=== PATIENT | male | born 1990 | race Caucasian/White ===

== ENCOUNTER 2023-09-08 13:23 | Emergency (ER) | payer OTHER, SELFPAY ==
--- NOTE | ~2023-09-08 | CT_ITS ---
EXAMINATION: CT ABDOMEN AND PELVIS WITHOUT CONTRAST CLINICAL INFORMATION: Right abdominal pain, nausea and vomiting. COMPARISON: None available. TECHNIQUE: Multidetector volumetric imaging was performed from the superior aspect of the liver through the pubic symphysis. Sagittal and coronal reformatted images were obtained on the technologist's workstation. This CT examination was performed using dose optimization techniques as appropriate, variously including the following: *Automated exposure control *Adjustment of mA and/or kV according to patient size (this includes techniques or standardized protocols for targeted exams where dose is matched to indication/reason for exam; i.e. extremities or head) *Use of iterative reconstruction technique DLP: 571 mGy-cm FINDINGS: LUNG BASES: At the posterolateral left base, there is tree-in-bud nodularity, opacification groundglass change. Among the largest nodules is one in the posterior base measuring 8 mm (4:102). LIVER, GALLBLADDER, AND BILIARY TREE: The liver is normal in size, shape, and attenuation. No focal hepatic lesion or biliary ductal dilatation is present. The gallbladder is unremarkable with no evidence of radiopaque gallstones, gallbladder wall thickening, or obvious pericholecystic inflammatory changes. PANCREAS: Unremarkable. SPLEEN: Unremarkable. ADRENAL GLANDS: Unremarkable. KIDNEYS AND URETERS: The kidneys are normal in size, shape, and attenuation. At the upper pole of the right kidney (4:229), there is a 9 mm focus of mineralization of a medullary pyramid. There is moderate right hydronephroureter secondary to an 8 mm calculus at the right ureterovesicular junction. No left ureteric calculus or obstruction is noted. No perinephric stranding. BLADDER: Decompressed and otherwise unremarkable. GASTROINTESTINAL TRACT: There is a large stool burden, suggesting possible constipation. No obstruction, free intraperitoneal air or abscess is seen. There is no focal bowel wall thickening. The vermiform appendix appears normal. ABDOMINAL WALL: No significant hernia is appreciated. LYMPH NODES: Normal. VASCULAR: Unremarkable. PELVIC VISCERA: The prostate and seminal vesicles are unremarkable. OSSEOUS STRUCTURES: There is mild posterior spondylosis at L5-S1. No acute or aggressive osseous abnormality is seen. CT/CT abdomen pelvis wo IV con IMPRESSION: 1. There is moderate right hydronephroureter secondary to an 8 mm, calculus at the right ureterovesicular junction. 2. 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 3. Findings suggest possible constipation, without william bowel obstruction. 4. There is airspace disease and nodularity at the posterolateral right base likely infectious or inflammatory. One of the largest discrete nodules measures 8 mm. According to the UPDATED 2017 Fleischner Society recommendations, the advised follow-up imaging for multiple solid nodules, the largest measuring 6 mm or greater, is: LOW RISK PATIENT: CT at 3-6 months, then consider CT at 18-24 months. HIGH RISK PATIENT: CT at 3-6 months, then at 18-24 months. Consider dedicated elective CT examination of the chest. Fleischner guidelines were followed.
--- NOTE | 2023-09-08 13:38 | ED_ITS ---
HPI - General Adult General Chief complaint: Abdominal Pain Stated complaint: LRQ pain Time Seen by Provider: 09/08/23 20:37 Source: patient Mode of arrival: ambulatory Limitations: no limitations History of Present Illness HPI narrative: Patient with significant past medical history father had history of kidney stones noticed pain in the right flank radiating to right lower abdomen since yesterday 21:00 got worse prior to arrival with nausea and vomiting 2 times uncomfortable on arrival also had pain to urinate no fever no chills Related Data Previous Rx's Medication Instructions Recorded ibuprofen 600 mg tablet 600 mg PO Q6H PRN fever or pain 09/09/23 #30 tabs morphine 15 mg immediate release 15 mg PO Q8H PRN pain #15 tabs 09/09/23 tablet tamsulosin 0.4 mg capsule (Flomax) 0.4 mg PO BEDTIME #10 caps 09/09/23 Allergies Allergy/AdvReac Type Severity Reaction Status Date / Time No Known Allergies Allergy Verified 09/08/23 13:41 Review of Systems 2 Review of Systems: Yes all other systems are reviewed and are negative FORMERLY [facility], [facility]–1983 Social History Social History Alcohol intake: never Smoked in Last 30 Days: No Use of substances other than those prescribed or required for medical reasons: No Advance Directives: No Advance Directives Information Provided: Yes Physical Exam ED Vital Signs: Vital Signs - 24 hr 09/08/23 13:39 09/08/23 21:01 09/08/23 21:21 Temperature 98.9 F 98.2 F Pulse Rate 89 76 Respiratory Rate 20 16 16 Blood Pressure 147/83 H 142/83 H Pulse Oximetry 100 98 Oxygen Delivery Method Room Air Room Air 09/08/23 23:00 09/09/23 00:09 Temperature Pulse Rate 69 73 Respiratory Rate 16 16 Blood Pressure 129/81 133/74 Pulse Oximetry 98 98 Oxygen Delivery Method Room Air Room Air BMI result Body Mass Index 24.2 Appearance: Alert. Oriented X3. In moderate distress Eyes: No pallor or icterus ENT: Pharynx normal. Oral Mucosa moist Neck: Normal inspection. Neck supple. CVS: Normal heart rate and rhythm. Pulses normal. Respiratory: No respiratory distress. Equal air entry bilateral, no wheezing/rales/rhonchi Abdomen: Soft D tenderness right lower quadrant no rebound tenderness or guarding. Bowel sounds are present, no mass palpable, right CVA tenderness + Skin: Skin warm and dry. Normal skin color. Normal skin turgor. Extremities: No lower extremity edema. No calf tenderness Neuro: Oriented X 3. Course Course Course Narrative: RME performed by Radha Del Rio PA-C. Patient is a 33 year old assigned male at presenting to the emergency department with RLQ abdominal pain and pain with urination. Labs ordered. Patient placed back in the waiting room pending room availability and results. Reevaluation(s) Reevaluation #1: pain improved plan was to follow up as outpatient with urology wants to go home and is ready Medications Administered Discontinued Medications Generic Name Dose Route Start Last Admin Trade Name Freq PRN Reason Stop Dose Admin Dexamethasone Sodium Phosphate 10 mg 09/08/23 20:41 09/08/23 21:21 Dexamethasone Sod Phosphate 10 Mg/Ml Vial IVPUSH 09/08/23 20:42 10 mg ONCE ONE Administration Hydromorphone HCl 2 mg 09/08/23 22:58 09/08/23 23:09 Hydromorphone Hcl 2 Mg/Ml Vial IVPUSH 09/08/23 22:59 2 mg ONCE ONE Administration Protocol Sodium Chloride 1,000 mls @ 999 mls/hr 09/08/23 20:38 09/08/23 22:27 Ns IV 09/08/23 21:38 Infused .Q1H1M ONE Infusion Sodium Chloride 1,000 mls @ 999 mls/hr 09/08/23 22:58 09/09/23 00:01 Ns IV 09/08/23 23:58 Infused .Q1H1M ONE Infusion Ketorolac Tromethamine 30 mg 09/08/23 20:38 09/08/23 21:22 Ketorolac Tromethamine 30 Mg/Ml Vial IVPUSH 09/08/23 20:39 30 mg ONCE ONE Administration Morphine Sulfate 4 mg 09/08/23 20:38 09/08/23 21:21 Morphine Sulfate 4 Mg/Ml Cartridge IVPUSH 09/08/23 20:39 4 mg ONCE ONE Administration Protocol Ondansetron HCl 4 mg 09/08/23 20:39 09/08/23 21:21 Ondansetron Hcl 4 Mg/2 Ml Vial IVPUSH 09/08/23 20:40 4 mg ONCE ONE Administration Tamsulosin HCl 0.4 mg 09/08/23 20:41 09/08/23 21:26 Tamsulosin Hcl 0.4 Mg Capsule PO 09/08/23 20:42 0.4 mg ONCE ONE Administration Medical Decision Making Medical Decision Making [facility] Narrative: Patient with 8 mm left UVJ stone with moderate hydronephrosis feeling much better after IV hydration pain medication case discussed with urologist advised discharge the patient if pain controlled to be seen as outpatient 0045: Patient feeling much better at this time will observe for some time he gets completely better Differential Diagnosis Differential Diagnoses: The differential diagnosis associated with the presentation includes Renal colic/UTI Admission/Observation Consideration of admission/observation: Escalation of care including admission/observation considered Lab Data [facility] Lab Attestation statement: I reviewed the patient's lab results. 09/08/23 14:39 09/08/23 14:39 Labs: Lab Results 09/08/23 Range/Units 14:39 WBC 11.8 H (4.8-10.8) X10*3/uL RBC 4.55 L (4.60-5.80) X10*6/uL Hgb 14.2 (14.0-18.0) g/dl Hct 42.1 (42.0-52.0) % MCV 92.5 (80.0-98.0) fL MCH 31.2 (27.0-33.0) pg MCHC 33.7 (31.0-36.0) g/dl RDW 12.2 (11.0-16.0) % Plt Count 217 (160-400) X10*3/uL MPV 8.9 L (9.4-12.4) fL Immature Gran % (Auto) 0.3 (0.0-0.4) % Neut % (Auto) 83.9 H (45-73) % Lymph % (Auto) 7.7 L (20-40) % [place] % (Auto) 7.4 (2-11) % Eos % (Auto) 0.3 (0-4) % Baso % (Auto) 0.4 (0-2) % Lymph # (Auto) 0.9 L (1.2-4.9) X10*3/uL [place] # (Auto) 0.9 (0.1-1.2) X10*3/uL Eos # (Auto) 0.0 (0.0-0.4) X10*3/uL Baso # (Auto) 0.1 (0.0-0.2) X10*3/uL Abs Immat Gran (auto) 0.03 (0.00-0.03) X10*3/uL Absolute Neuts (auto) 9.9 H (2.0-8.3) x10*3/uL Absolute Nucleated RBC 0.000 (0.0-0.012) X10*3/uL Nucleated RBC % (auto) 0.0 (0.0-0.2) /100WBC Sodium 137 (135-145) mmol/L Potassium 4.1 (3.3-5.1) mmol/L Chloride 102 (96-108) mmol/L Carbon Dioxide 27 (22-29) mmol/L Anion Gap 12 (12-20) BUN 19 H (9-16) mg/dL Creatinine 1.09 (0.5-1.4) mg/dL Estim Creat Clear Calc 109.9 Estimated GFR > 60 Random Glucose 103 (60-115) mg/dL Calcium 9.3 (8.4-10.2) mg/dL Magnesium 1.7 (1.6-2.6) mg/dL Total Bilirubin 0.5 (0.0-1.0) mg/dL AST 18 (5-37) U/L ALT 16 (0-40) U/L Alkaline Phosphatase 82 (39-117) U/L Total Protein 7.7 (6.5-8.0) g/dL Albumin 5.0 (3.5-5.0) g/dL Urine Color Yellow Urine Appearance Clear Urine pH 6.5 (5.0-9.0) Ur Specific [place] 1.020 (1.005-1.025) Urine Protein Trace (Neg-Trace) mg/dL Urine Glucose (UA) Negative (Negative) mg/dL Urine Ketones Negative (Negative) mg/dL Urine Blood Moderate (2+) H (Negative) Urine Nitrite Negative (Negative) Ur Leukocyte Esterase Small (1+) H (Negative) Urine RBC >20 H (0-2) /HPF Urine WBC 11-20 H (0-5) /HPF Ur Squamous Epith Cells 0-2 (0-2) /HPF Calcium Oxalate Crystal Present Urine Bacteria None Seen (None Seen) Hyaline Casts 0-2 (0-2) /LPF Influenza Type A (PCR) NEGATIVE (Negative) Influenza Type B (PCR) NEGATIVE (Negative) RSV RNA Qual (PCR) NEGATIVE (Negative) SARS-CoV-2 RNA (RT-PCR) NEGATIVE (Negative) Independent Interpretation I performed an independent interpretation of an: CT Scan Radiology Impression Discussion of test interpretation with radiology: I have reviewed the radiologist's reading. Discharge Plan Discharge Clinical Impression: Kidney stone on left side Patient Disposition: Home, Self-Care Instructions: Kidney Stones (ED), Low Oxalate Diet (ED) Additional Instructions: Drink plenty of water Avoid food containing high oxalate Pain medication as prescribed Follow-up with urologist tomorrow Prescriptions: New morphine 15 mg tablet 15 mg PO Q8H PRN (Reason: pain) Qty: 15 0RF Rx Instructions: Partial Fill upon patient request. tamsulosin [Flomax] 0.4 mg capsule 0.4 mg PO BEDTIME Qty: 10 0RF ibuprofen 600 mg tablet 600 mg PO Q6H PRN (Reason: fever or pain) Qty: 30 0RF Referrals: Pedro Carson MD [Physician] - 1 day
[2023-09-08 13:39] VITALS: BP 147/83; PULSE 89; RESP 20; TEMP 37.2; O2SAT 100; BMI 24.2
[2023-09-08 14:45] LABS: MANUAL DIFF FLAG NO
[2023-09-08 14:46] LABS: Basophils Absolute Auto 0.1 X10*3/uL (0.0-0.2); Basophils Percent Auto 0.4 % (0-2); Eosinophils Percent Auto 0.3 % (0-4); Hematocrit 42.1 % (42.0-52.0); Hemoglobin 14.2 g/dl (14.0-18.0); Imm Gran Abs Auto 0.03 X10*3/uL (0.00-0.03); Imm Gran Pct Auto 0.3 % (0.0-0.4); Lymphocytes Absolute Auto 0.9 X10*3/uL (1.2-4.9); Lymphocytes Percent Auto 7.7 % (20-40); Mean Corpuscular HGB Conc 33.7 g/dl (31.0-36.0); Mean Corpuscular Hemoglobin 31.2 pg (27.0-33.0); Mean Corpuscular Volume 92.5 fL (80.0-98.0); Mean Platelet Volume 8.9 fL (9.4-12.4); Monocytes Absolute Auto 0.9 X10*3/uL (0.1-1.2); Monocytes Percent Auto 7.4 % (2-11); Neutrophils Absolute Auto 9.9 x10*3/uL (2.0-8.3); Neutrophils Percent Auto 83.9 % (45-73); Platelet Count 217 X10*3/uL (160-400); Red Blood Count 4.55 X10*6/uL (4.60-5.80); Red Cell Distribution Width 12.2 % (11.0-16.0); White Blood Count 11.8 X10*3/uL (4.8-10.8)
[2023-09-08 14:53] LABS: Appearance Urine Clear; Color Urine Yellow; Glucose Urine UA Negative (Negative); Leukocyte Esterase Urine Small (1+) (Negative); Nitrite Urine Negative (Negative); PH 6.5 (5.0-9.0); UMIC TRIGGER UACC YES; Urine Blood Moderate (2+) (Negative); Urine Ketones Negative (Negative); Urine Protein Trace mg/dL (Neg-Trace)
[2023-09-08 14:59] LABS: Alanine Aminotransferase 16 U/L (0-40); Alkaline Phosphatase 82 U/L (39-117); Anion Gap 12 (12-20); Aspartate Amino Transferase 18 U/L (5-37); Bilirubin Total 0.5 mg/dL (0.0-1.0); Blood Urea Nitrogen 19 mg/dL (9-16); Calcium 9.3 mg/dL (8.4-10.2); Carbon Dioxide 27 mmol/L (22-29); Chloride 102 mmol/L (96-108); Creatinine Clr Calc Pharmacy 109.9; Estimated Glomerular Filt Rate > 60; Glucose Random 103 mg/dL (60-115); Magnesium 1.7 mg/dL (1.6-2.6); Potassium 4.1 mmol/L (3.3-5.1); Sodium 137 mmol/L (135-145); Total Protein 7.7 g/dL (6.5-8.0)
[2023-09-08 15:24] LABS: Bacteria Urine None Seen (None Seen); Calcium Oxalate Crystals Urine Present; Hyaline Casts Urine 0-2 /LPF (0-2); Influenza A PCR NEGATIVE (Negative); Influenza B PCR NEGATIVE (Negative); RBC Urine >20 /HPF (0-2); Resp Syncy Virus RNA Qual PCR NEGATIVE (Negative); SARS COV2 PCR INHOUSE NEGATIVE (Negative); Squamous Epithelial Cell Urine 0-2 /HPF (0-2); UACC Culture Trigger YES
[2023-09-08 21:01] VITALS: BP 142/83; PULSE 76; RESP 16; TEMP 36.8; O2SAT 98
[2023-09-08 21:21] VITALS: RESP 16
[2023-09-08] MEDS: dexAMETHasone sod phosphate 10 MG/ML VIAL IVPUSH (21:21)
[2023-09-08] MEDS: ondansetron HCL 4 MG/2 ML VIAL IVPUSH (21:21)
[2023-09-08] MEDS: Morphine Sulfate 4 MG/ML CARTRIDGE IVPUSH (21:21)
[2023-09-08] MEDS: Ketorolac Tromethamine 30 MG/ML VIAL IVPUSH (21:22)
[2023-09-08] MEDS: Tamsulosin HCL 0.4 MG CAPSULE PO (21:26)
[2023-09-08] MEDS: 0.9 % Sodium Chloride 1,000 ML 999 ML IV ×2 (21:26→23:09)
[2023-09-08 23:00] VITALS: BP 129/81; PULSE 69; RESP 16; O2SAT 98
[2023-09-08] MEDS: HYDROmorphone HCl 2 MG/ML VIAL IVPUSH (23:09)
--- NOTE | 2023-09-09 00:02 | PC.NURSE ---
pt states pain improved with pain medication. ivf infused.
[2023-09-09 00:09] VITALS: BP 133/74; PULSE 73; RESP 16; O2SAT 98
--- NOTE | 2023-09-09 02:02 | PC.NURSE ---
pt asked to speak to this RN; stated my pain is a 4; I feel like I can go home now. Dr. Laguna made aware.
[2023-09-09 02:09] VITALS: BP 129/79; PULSE 68; RESP 16; O2SAT 97
== END 2023-09-09 02:16 | disposition home or self-care (01) ==
PROVIDERS: Physician Assistant Medical; Emergency Provider Internal Medicine
DX: N13.2 Hydronephrosis with renal and ureteral calculous obstruction (principal); Z20.822 Contact with and (suspected) exposure to COVID-19; Z20.828 Contact with and (suspected) exposure to other viral communicable diseases; R11.2 Nausea with vomiting, unspecified; Z87.891 Personal history of nicotine dependence
CPT/HCPCS: 0241U; 74176; 80053; 81001; 83735; 85025; 87086; 96361; 96374; 96375; 99284; 99285; J1100; J1170; J1885; J2270; J2405

== ENCOUNTER 2023-09-10 13:22 | Outpatient (AMB) | payer OTHER, SELFPAY ==
--- NOTE | 2023-09-10 13:41 | A.OFFVIS_ITS ---
Intake Intake Visit Reasons: er follow up Intake Note: NEW Patient presents today to established treatment for Kidneys Stones: Meds- Tamsulosin Allergies to Antibiotic- No Known Allergies Blood Thinner- None Patient Symptoms: None Open Source Developer Required: No Accompanied by: Self / Same As Patient Allergies No Known Allergies Allergy (Verified 09/29/23 09:20) HPI HPI Comments History of Present Illness Details Jack is a 33-year-old male who presents today to the office to establish treatment for kidney stones. 09/10/2023-- He was seen in ER on 09/08/2023 for right sided abdominal pain. FH - father with history of kidney stones. PMH - Bipolar. I reviewed the CT abdomen/pelvis results from 09/08/2023 revealed a 8 mm right ureterovesicular junction with hydronephrosis. The patient has not passed the stone. Plan: Right ureteroscopy, laser lithotripsy and stent was discussed to be scheduled. [facility] Medical History (Updated 09/29/23 @ 09:40 by Sanjana Zapata MD) Bipolar 1 disorder Surgical History (Updated 09/29/23 @ 09:20 by Kateryna Rodriguez RN) Hx of cystoscopy History of tonsillectomy History of surgery Family History Father No problems noted. Mother Family history of lung cancer Alcohol intake: never Patient Tobacco Use Status: Current everyday Tobacco user Tobacco use type: Cigarette Smoked in Last 30 Days: Yes e-Cigarette/Vaping Use: Currently Using Patient Interested in Nicotine Replacement: No Are you DNR?: No Advance Directives: No Advance Directives Information Provided: Yes Nutrition Risks: No Nutritional Risk Review of Systems Const All systems reviewed & are unremarkable except as noted in HPI and below Reports no additional complaints Eyes Reports no additional complaints ENT Reports no additional complaints Card Denies dyspnea Resp Denies cough and Denies dyspnea GI Reports no additional complaints Musc Reports no additional complaints Skin/Breast Denies rash and Denies unusual bruising Neuro Reports no additional complaints Psych Reports no additional complaints Endo Reports no additional complaints Derrick/Lymph Reports no additional complaints Aller/Immun Reports no additional complaints Physical Exam Const General: healthy appearing, no acute distress and well developed Orientation/consciousness: patient oriented x3 HEENT Head: Yes normocephalic and Yes atraumatic Eyes Conjunctivae: conjunctivae normal Neck Neck: Yes normal visual inspection Chest Chest palpation & inspection: normal inspection of the chest Resp Effort & Inspection: normal respiratory effort Cardio Rate: regular rate GI Inspection: Yes normal to inspection Skin General skin exam: no rashes or lesions noted Neuro General: patient oriented x3 Extrem General: No pedal edema Psych Appearance: grossly normal Affect: normal affect Results AMB Urinalysis, Automated UA Leukoctes 0 Saad/uL Last Edit by GRIS Flores on 09/10/23 14:04 UA Nitrite Negative Last Edit by Tadeo Acosta Meena on 09/10/23 14:04 UA Urobilinogen 0.2 mg/dL Last Edit by Tadeo Acosta ON LICENSE OF [facility] on 09/10/23 14:0 4 UA Protein 15 mg/dL Last Edit by Tadeo Acosta Meena on 09/10/23 14:04 UA pH 6.5 Last Edit by Tadeo Acosta ON LICENSE OF [facility] on 09/10/23 14:04 UA Blood 0 Tobi/uL Last Edit by Tadeo Acosta Meena on 09/10/23 14:04 UA Specific [place] 1.015 Last Edit by Tadeo Acosta Meena on 09/10/23 14: 04 UA Ketone Negative Last Edit by Tadeo Acosta Meena on 09/10/23 14:04 UA Bilirubin 0 mg/dL Last Edit by Tadeo Acosta Meena on 09/10/23 14:04 UA Glucose 0 mg/dL Last Edit by Tadeo Acosta ON LICENSE OF [facility] on 09/10/23 14:04 Results Reviewed Results Reviewed: Laboratory Last Values Urine pH (Auto) 6.5 09/10/23 14:03 Specific [place] (Auto) 1.015 09/10/23 14:03 Urine Protein (Auto) 15 mg/dL 09/10/23 14:03 Glucose (UA)(Auto) 0 mg/dL 09/10/23 14:03 Urine Ketones (Auto) Negative 09/10/23 14:03 Urine Blood (Auto) 0 Tobi/uL 09/10/23 14:03 Urine Nitrite (Auto) Negative 09/10/23 14:03 Urine Bilirubin (Auto) 0 mg/dL 09/10/23 14:03 Urine Urobilinogen (Auto) 0.2 mg/dL 09/10/23 14:03 Leukocyte Esterase (Auto) 0 Saad/uL 09/10/23 14:03 Assessment & Plan Assessment & Plan (1) Hydronephrosis: Code(s): N13.30 - Unspecified hydronephrosis (2) Ureteral stone: Code(s): N20.1 - Calculus of ureter Plan Right ureteroscopy, laser lithotripsy and stent was discussed to be scheduled. Orders: Orders AMB Urinalysis Automated 09/10/23 Z13.9 - Encounter for screening, unspecified Medications: New ondansetron 8 mg PO Q8-12H 20 tabs 0RF Patient Instructions: The patient had an opportunity to ask questions regarding treatment plan. All questions were answered. Imaging, Laboratory studies and physical exam results were discussed and reviewed in detail. No major barriers to understanding were identified. The patient expressed understanding and agreement with the above treatment plan. The patient is aware they should contact our office by phone for worsening of their current condition or the appearance of new symptoms. Compliance is encouraged with any medications and followup testing that is ordered. It is a privilege to be allowed the opportunity to participate in the urologic care of your patient. If you have any questions or concerns regarding treatment for the above conditions please do not hesitate to contact me. The office telephone contact is [phone]. This note is constructed in part using voice recognition software. While every effort has been made to ensure accuracy snubber errors may have been included. Yours sincerely, Sanjana Zapata MD Coding Level of Care Code New Pt Level 4 (35904) Diagnoses Hydronephrosis N13.30 Ureteral stone N20.1
== END 2023-09-10 14:38 | disposition home or self-care (01) ==
PROVIDERS: Visit Provider Urology
DX: N13.30 Unspecified hydronephrosis (principal); N20.1 Calculus of ureter
CPT/HCPCS: 99204

== ENCOUNTER → 2023-09-10 13:22 | Outpatient (BNVA) | payer OTHER, SELFPAY | PROVIDERS: Visit Provider Urology | DX: N20.1 Calculus of ureter (principal); N13.30 Unspecified hydronephrosis | CPT/HCPCS: 81003 ==

== ENCOUNTER 2023-09-15 08:52 | Day surgery (SDC) | payer OTHER, SELFPAY ==
--- NOTE | 2023-09-14 09:32 | HO.ANESPROP2 ---
HPI - Anesthesia Eval Consult details Narrative: 33yo M for Right Cystoscopy, Ureteroroscopy, Retro, Laser PMFSH Family History Family History (Updated 09/10/23 @ 14:01 by GRIS Flores) Father No problems noted. Mother Family history of lung cancer Surgical History Surgical History (Updated 09/10/23 @ 14:01 by GRIS Flores) No pertinent past surgical history Social History Social History (Updated 09/10/23 @ 14:02 by GRIS Flores) Alcohol intake: never e-Cigarette/Vaping Use: Currently Using Meds Allergies Allergy/AdvReac Type Severity Reaction Status Date / Time No Known Allergies Allergy Verified 09/10/23 13:47 Home Medications Medication Instructions Recorded Confirmed Last Taken Type oxcarbazepine 600 mg tablet 600 mg PO BID 09/10/23 Unknown History quetiapine 200 mg tablet 200 mg PO BEDTIME 09/10/23 Unknown History Exam Exam Date and Time: September 14, 2023 0932 Pertinent Lab Results Pertinent Lab Results: Laboratory Tests 09/08/23 14:39 WBC 11.8 H Hgb 14.2 Hct 42.1 Plt Count 217 Sodium 137 Potassium 4.1 Chloride 102 Carbon Dioxide 27 BUN 19 H Creatinine 1.09 Assessment and Plan Assessment Anesthesia Assessment: Chart Reviewed
[2023-09-15] VITALS (10 sets, daily range): BP systolic 106–129; BP diastolic 55–84; PULSE 50–62; RESP 16–20; TEMP 36.4–36.6; O2SAT 97–100; BMI 24.2
--- NOTE | ~2023-09-15 | FL_ITS ---
EXAMINATION: XR FLUOROSCOPY WITH IMAGES CLINICAL INFORMATION: Right stone. COMPARISON: None available. TECHNIQUE: Fluoroscopy Supervised By: Dr. Zapata. Fluoroscopy Time: 15.3 seconds. Cumulative Dose: 3.36 mGy. DAP: Gycm2. Images: 3. FINDINGS: Initial image demonstrates a wire in the right ureter. Final images demonstrate a right internal ureteral stent. There is a stone in the right UVJ region/bladder FL/FL guidance in OR IMPRESSION: Fluoroscopy guidance for urology procedure
--- NOTE | 2023-09-15 09:20 | HO.ANESPROP2 ---
[facility] Past Medical History Medical History Bipolar 1 disorder Functional capacity: independent ambulation Family History Family History Father No problems noted. Mother Family history of lung cancer Surgical History Surgical History History of tonsillectomy History of surgery Social History Social History Alcohol intake: never Patient Tobacco Use Status: Former Tobacco user Tobacco use type: Cigarette e-Cigarette/Vaping Use: Currently Using Use of substances other than those prescribed or required for medical reasons: No Are you DNR?: No Advance Directives: No Advance Directives Information Provided: Yes Meds Allergies Allergy/AdvReac Type Severity Reaction Status Date / Time No Known Allergies Allergy Verified 09/10/23 13:47 Active Medications: Current Medications Lactated Ringer's (Lr) 1,000 mls @ 100 mls/hr IVCONT .Q10H [facility] Home Medications Medication Instructions Recorded Confirmed Last Taken Type oxcarbazepine 600 mg tablet 600 mg PO BID 09/10/23 09/15/23 09/15/23 History quetiapine 200 mg tablet 200 mg PO BEDTIME 09/10/23 09/15/23 Unknown History Exam Exam Date and Time: September 15, 2023 0920 Height,Weight and Vital Signs: Height 6 ft 1 in Weight 83.064 kg Airway Mallampati Class: II TM Dist: >3cm Neck ROM: Full Heart: RRR Lungs: CTA Assessment and Plan Assessment Anesthesia Assessment: Anesthesia Plan Discussed Final Anesthetic Review ASA Class: II Final Preanesthetic Review: Meds/Allgs Chart Reviewed, Consent Obtained/Reviewed and Anes Risks/Benef Reviewed Patient Risk: Low Procedure Risk: Low Anesthetic Plan Anesthetic Plan: GA Disposition: Standard PACU
[2023-09-15] MEDS: Lactated Ringers 1,000 ML 100 ML IVCONT (09:31)
--- NOTE | 2023-09-15 11:25 | MHC.SHP ---
Pre-Procedural Eval Section A Date of Service: 09/15/23 The patient is an INPATIENT: No The History & Physical has been completed within 30 days and I have reviewed it.: Yes Section B Chief Complaint: Calculus of kidney Allergies: Allergies Allergy/AdvReac Type Severity Reaction Status Date / Time No Known Allergies Allergy Verified 09/10/23 13:47 Plan Diagnosis/Plan: Unchanged I have reviewed the history and physical and performed a pertinent physical examination on my patient. No changes have occurred unless specified. Plan for Cystoscopy, Right ureteroscopy, laser lithotripsy, ureteral stent. Risks discussed included but not limited to, possible need to repeat procedure if stone is not completely fragmented, Irritative voiding symptoms, bladder spasms, urgency, blood in urine. Time Spent With Patient Time: Total time managing care of this patient today ____ minutes.
--- NOTE | 2023-09-15 12:43 | W.PM.OPN ---
Operative Note Operative Note Date of Service: 09/15/23 Narrative: PreOperative Diagnosis:?? right distal ureteral stone Post Operative Diagnosis:?? ?right distal ureteral stone Procedure: - cystoscopy, right retrograde ureteroscopy, - right stent placement 6 fr by multi-length Surgeon:?Dr Sanjana Zapata Anesthesia:? General Procedure: After informed consent was verified the patient was brought to the operating placed on the OR table in supine position.? General Anesthesia was administered per protocol.? The patient was placed in lithotomy position, prepped and draped in the usual sterile fashion.? Safety pause time-out and side of surgery confirmed.? Antibiotics confirmed. A 22 Tamazight cystoscope was inserted transurethrally, the bulbous urethra was within normal limits. The prostatic urethra was nonobstructive. The bladder was visualized.? There was significant edema at the right hemitrigone. The?ureteral cannula was placed near the right ureteral orifice and a retrograde examination was performed, constrast was noted in the distal ureter. Due to the edema it was difficult identify to pass the guide wire. The rigid ureteroscope was then used and a hydrophilic guidewire was placed up to the level of the renal pelvis under fluoroscopy. Due to the significant edema, further instrumentation was not attempted, the ureteroscope was removed leaving the guidewire in place. The cystoscope was placed over the guidewire. A? 6 Tamazight by multi- length stent was placed into the ureter and renal pelvis under a combination of fluoroscopy and direct visualization. The bladder was emptied.? The rigid cystoscope was removed. ? The patient tolerated the procedure well and was brought to the recovery room in stable condition. Complications: None Drains: Ureteral stent as dictated above
[2023-09-15] MEDS: oxyCODONE HCl Immed Release 5 MG TABLET PO (13:13)
[2023-09-15] MEDS: fentaNYL citrate/PF 100 MCG/2 ML VIAL 25 MCG IVPUSH ×3 (13:14→13:24)
--- NOTE | 2023-09-15 13:25 | HO.POSTANES ---
Post Anesthesia Evaluation Post Anesthesia Evaluation Date of Service: 09/15/23 Vital Signs: Vital Signs Temp Pulse Resp BP Pulse Ox O2 Del Method 09/15/23 13:19 52 20 129/84 99 Room Air 09/15/23 13:19 20 09/15/23 13:14 52 20 129/84 99 Room Air 09/15/23 13:14 16 09/15/23 12:53 50 16 110/77 99 Room Air 09/15/23 12:48 62 16 114/68 99 Room Air 09/15/23 12:43 58 16 106/55 L 99 Room Air 09/15/23 12:38 97.8 F 61 16 117/65 97 Room Air 09/15/23 09:22 97.9 F 55 16 127/80 100 Room Air Anesthesia: General LMA Mental Status: Awake Pain Control: Satisfactory Nausea/Vomiting: None Hydration: Adequate Anesthesia-Related Issues: No Anes. Related Issues
[2023-09-15] MEDS: Acetaminophen 1,000 MG/100 ML PIGGYBACK 400 MG IV (13:34)
== END 2023-09-15 15:01 | disposition home or self-care (01) ==
PROVIDERS: Visit Provider Urology
PROC: (CPT 52351; principal; 2023-09-15 10:50)
DX: N20.1 Calculus of ureter (principal); F31.9 Bipolar disorder, unspecified; Z79.899 Other long term (current) drug therapy; Z98.890 Other specified postprocedural states; Z87.891 Personal history of nicotine dependence
CPT/HCPCS: 52351; 52332; C1769; C2617; J0131; J0690; J1100; J1885; J2250; J2405; J2704; J3010; Q9967

== ENCOUNTER → 2023-09-15 08:52 | Outpatient (BNV) | payer OTHER, SELFPAY | PROVIDERS: Visit Provider Urology | DX: N20.1 Calculus of ureter (principal) | CPT/HCPCS: 52332; 74420 ==

== ENCOUNTER 2023-09-29 08:54 | Day surgery (SDC) | payer OTHER, SELFPAY ==
--- NOTE | 2023-09-28 10:47 | HO.ANESPROP2 ---
Documented by User: Allyson Campos NP 09/28/23 10:48 HPI - Anesthesia Eval Consult details Narrative: 33yo M for Cystoscopy, Ureteroroscopy, Retro, Laser, with stent exchange s/p same 09/16/23 [facility] Past Medical History Medical History Bipolar 1 disorder Family History Family History Father No problems noted. Mother Family history of lung cancer Surgical History Surgical History (Updated 09/29/23 @ 09:20 by Kateryna Rodriguez, RN) Hx of cystoscopy History of tonsillectomy History of surgery Social History Alcohol intake: never Patient Tobacco Use Status: Current everyday Tobacco user Tobacco use type: Cigarette Smoked in Last 30 Days: Yes e-Cigarette/Vaping Use: Currently Using Patient Interested in Nicotine Replacement: No Are you DNR?: No Advance Directives: No Advance Directives Information Provided: Yes Nutrition Risks: No Nutritional Risk Meds Allergies Allergy/AdvReac Type Severity Reaction Status Date / Time No Known Allergies Allergy Verified 09/29/23 09:20 Home Medications Medication Instructions Recorded Confirmed Last Taken Type oxcarbazepine 600 mg tablet 600 mg PO BID 09/10/23 09/29/23 09/29/23 History quetiapine 200 mg tablet 200 mg PO BEDTIME 09/10/23 09/29/23 Unknown History Exam Pertinent Lab Results Pertinent Lab Results: Laboratory Tests 09/08/23 14:39 WBC 11.8 H Hgb 14.2 Hct 42.1 Plt Count 217 Sodium 137 Potassium 4.1 Chloride 102 Carbon Dioxide 27 BUN 19 H Creatinine 1.09 Assessment and Plan Assessment Anesthesia Assessment: Chart Reviewed Documented by User: Nicci Tavares MD 09/29/23 09:25 [facility] Past Medical History Medical History Bipolar 1 disorder Family History Family History Father No problems noted. Mother Family history of lung cancer Family history of problems with anesthesia: No Surgical History Surgical History (Updated 09/29/23 @ 09:20 by Kateryna Rodriguez RN) Hx of cystoscopy History of tonsillectomy History of surgery History of Problems with Anesthesia: No Social History Alcohol intake: never Patient Tobacco Use Status: Current everyday Tobacco user Tobacco use type: Cigarette Smoked in Last 30 Days: Yes e-Cigarette/Vaping Use: Currently Using Patient Interested in Nicotine Replacement: No Are you DNR?: No Advance Directives: No Advance Directives Information Provided: Yes Nutrition Risks: No Nutritional Risk Meds Allergies Allergy/AdvReac Type Severity Reaction Status Date / Time No Known Allergies Allergy Verified 09/29/23 09:20 Home Medications Medication Instructions Recorded Confirmed Last Taken Type oxcarbazepine 600 mg tablet 600 mg PO BID 09/10/23 09/29/23 09/29/23 History quetiapine 200 mg tablet 200 mg PO BEDTIME 09/10/23 09/29/23 Unknown History Exam Airway Mallampati Class: I TM Dist: >3cm Neck ROM: Full Assessment and Plan Assessment Anesthesia Assessment: Anesthesia Plan Discussed Final Anesthetic Review Family History of Problems with Anesthesia: No History of Problems with Anesthesia: No NPO: Yes ASA Class: II Final Preanesthetic Review: No Changes in Pt Med Stat, Meds/Allgs Chart Reviewed, Consent Obtained/Reviewed and Anes Risks/Benef Reviewed Patient Risk: Low Procedure Risk: Low Anesthetic Plan Anesthetic Plan: GA Disposition: Standard PACU
--- NOTE | ~2023-09-29 | FL_ITS ---
EXAMINATION: XR FLUOROSCOPY WITH IMAGES CLINICAL INFORMATION: Right urinary calculus. COMPARISON: CT abdomen and pelvis dated 09/08/2023. TECHNIQUE: Fluoroscopy Supervised By: Dr. Zapata. Fluoroscopy Time: 3.4 seconds. Cumulative Dose: 0.73 mGy. Images: 1. FINDINGS: The submitted image shows a guidewire situated within the proximal right ureter and the right intrarenal collecting system. FL/FL guidance in OR IMPRESSION: Intraoperative fluoroscopic guidance is provided during guidewire access of the right urinary collecting system. Please see the patient's Operative Report for full procedural details.
[2023-09-29 08:56] VITALS: BP 117/79; PULSE 76; RESP 18; TEMP 36.7; O2SAT 99
[2023-09-29 09:04] VITALS: BMI 23.8
--- NOTE | 2023-09-29 10:18 | P.HPSUR_ITS ---
Pre-Procedural Eval Section A Date of Service: 09/29/23 The patient is an INPATIENT: No The History & Physical has been completed within 30 days and I have reviewed it.: Yes Section B Chief Complaint: Right ureteral stone Details of Present Illness: Right ureteral stone s/p right ureteral stent on 09/15/23 Allergies: Allergies Allergy/AdvReac Type Severity Reaction Status Date / Time No Known Allergies Allergy Verified 09/29/23 09:20 Plan Diagnosis/Plan: Unchanged I have reviewed the history and physical and performed a pertinent physical examination on my patient. No changes have occurred unless specified. Plan for Cystoscopy, right ureteroscopy, laser lithotripsy, possible ureteral s tent exchange. Risks discussed included but not limited to, possible need to repeat procedure if stone is not completely fragmented, Irritative voiding symptoms, bladder spasms, urgency, blood in urine. Time Spent With Patient Time: Total time managing care of this patient today ____ minutes.
--- NOTE | 2023-09-29 11:12 | W.PM.OPN ---
Operative Note Operative Note Date of Service: 09/29/23 Narrative: PreOperative Diagnosis:?? Right ureteral stone status post stent Post Operative Diagnosis:?? Right ureteral stone status post stent Procedure: Cystoscopy, Right ureteroscopy laser lithotripsy , stone extraction stent removal Surgeon:?Dr Sanjana Zapata Anesthesia:? General Indications for procedure: Here for stone fragmentation. Procedure: After informed consent was verified the patient was brought to the operating placed on the OR table in supine position.? General Anesthesia was administered per protocol.? The patient was placed in lithotomy position, prepped and draped in the usual sterile fashion.? Safety pause time-out and side of surgery confirmed.? Antibiotics confirmed. A 22 Serbian cystoscope was inserted transurethrally, the bulbous urethra was within normal limits. The prostatic urethra nonobstructive, bladder neck mildly obstructive at the 6 o'clock position The bladder was visualized.? Both ureteric orifices were in normal position. The right ureteral stent was curled in the bladder. The? distal end of the ureteral stent was grasped with the flexible grasping forceps. The stent was pulled retrograde through the urethra. A guidewire was passed through the stent. The cystoscope was removed, leaving the guidewire in place. The guidewire was used as the safety and was attached to the draping. The semi rigid ureteroscope was passed transurethrally to the level of the stone in the distal ureter. Laser lithotripsy of the stone was done using the 365 fiber with a combination of dusting settings 0.5 J by 20 hertz and 0.8 joules by 6 hertz There was good fragmentation of the stone. The 0 degree basket was used to remove the stone fragments, which were sent for analysis. The ureteroscope was removed. The cystoscope was passed transurethrally. There was good efflux of urine from the right ureteral orifice. The guidewire was removed. The bladder was emptied.? The rigid cystoscope was removed. ? The patient tolerated the procedure well and was brought to the recovery room in stable condition. Complications: None Drains: None
[2023-09-29 11:13] VITALS: BP 127/75; PULSE 84; RESP 16; TEMP 36.4; O2SAT 100
[2023-09-29 11:18] VITALS: BP 119/74; PULSE 72; RESP 16; O2SAT 100
[2023-09-29 11:23] VITALS: BP 122/68; PULSE 68; RESP 16; O2SAT 100
[2023-09-29] MEDS: oxyCODONE HCl Immed Release 5 MG TABLET PO (11:23)
[2023-09-29 11:28] VITALS: BP 119/69; PULSE 78; RESP 16; O2SAT 100
[2023-09-29] MEDS: Phenazopyridine HCL 200 MG TABLET PO (11:40)
[2023-09-29 11:43] VITALS: BP 126/74; PULSE 76; RESP 18; TEMP 36.8; O2SAT 100
[2023-10-06 17:28] LABS: Stone Source KIDNEY STONE
== END 2023-09-29 12:23 | disposition home or self-care (01) ==
PROVIDERS: Visit Provider Urology
PROC: (CPT 52353; principal; 2023-09-29 10:30)
DX: N20.1 Calculus of ureter (principal); Z46.6 Encounter for fitting and adjustment of urinary device; Z79.899 Other long term (current) drug therapy; F17.210 Nicotine dependence, cigarettes, uncomplicated
CPT/HCPCS: 52353; 82365; 88300; C1769; J0690; J1100; J1885; J2250; J2371; J2405; J2704; J3010; Q9967

== ENCOUNTER → 2023-09-29 08:54 | Outpatient (BNV) | payer OTHER, SELFPAY | PROVIDERS: Visit Provider Urology | DX: N20.0 Calculus of kidney (principal) | CPT/HCPCS: 52353 ==